=== PATIENT | female | born 1955 | race Caucasian/White ===

== ENCOUNTER 2022-09-14 22:56 | Inpatient (IN) | payer MEDICARE, OTHER ==
[~2022-09-14] VITALS: Ht 165.1 cm; Wt 81.9 kg
[2022-09-14 23:20] LABS: Base Excess Venous -8.6 mmol/L; Bicarbonate Venous 16.6 mmol/L (24.0-30.0); PCO2 Venous 53.5 mmHg (38-42); pH Blood Venous 7.18 (7.34-7.37)
[2022-09-14 23:22] LABS: Hematocrit 39.7 % (33.0-51.0); Hemoglobin 12.9 g/dL (11.5-16.0); Mean Corpuscular HGB 31.8 pg (26.0-34.0); Mean Corpuscular HGB Conc 32.5 g/dL (31.5-36.5); Mean Corpuscular Volume 98 fL (80-100); Mean Platelet Volume 9.7 fL (9.1-12.4); Platelet Count 392 K/mm3 (150-400); RDW Coefficient Variation 13.8 % (11.7-14.2); RDW Standard Deviation 50.1 fL (35.1-46.3); Red Blood Cell Count 4.06 M/mm3 (3.80-5.20); White Blood Cell Count 12.25 K/mm3 (4.00-11.30)
[2022-09-15 00:24] LABS: BASOPHILS PERCENT MAN 0 % (0-2); EOSINOPHILS ABSOLUTE MAN 0.36 K/mm3 (0.00-0.68); EOSINOPHILS PERCENT MAN 3 % (0-6); LYMPHOCYTES ABSOLUTE MAN 4.41 K/mm3 (0.84-5.20); LYMPHOCYTES PERCENT MAN 36 % (21-46); MONOCYTES ABSOLUTE MAN 0.98 K/mm3 (0.16-1.47); MONOCYTES PERCENT MAN 8 % (4-13); NEUTROPHILS ABSOLUTE MAN 6.49 K/mm3 (1.96-9.15); SEG NEUTROPHILS PERCENT MAN 53 % (41-73); TOTAL CELLS COUNTED 100
[2022-09-15 00:30] LABS: Albumin, Blood 3.4 g/dL (3.4-5.0); Albumin/Globulin Ratio 0.8 (0.8-1.8); Bilirubin, Total 0.3 mg/dL (0.1-1.0); Calcium, Blood 8.8 mg/dL (8.5-10.1); Creatinine, Blood 0.89 mg/dL (0.40-1.00); Globulin, Blood 4.5 g/dL (2.2-4.0); Potassium, Blood 3.6 mmol/L (3.5-5.5); Total Protein, Blood 7.9 g/dL (6.4-8.2)
[2022-09-15 00:35] LABS: Thyroid Stimulating Hormone 8.33 uIU/mL (0.360-4.800)
[2022-09-15 00:46] LABS: Influenza A, PCR NEGATIVE (NEGATIVE); Influenza B, PCR NEGATIVE (NEGATIVE); Resp Syncytial Virus, PCR NEGATIVE (NEGATIVE); SARS-Cov-2 (COVID-19) PCR, MMC NEGATIVE (NEGATIVE)
[2022-09-15 01:36] LABS: PCO2 Arterial 42.6 mmHg (35-45); PO2 Arterial 83.2 mmHg (80-100); pH Blood Arterial 7.37 (7.35-7.45)
--- NOTE | 2022-09-15 02:55 | NUR ---
PT ADMIT TO ICU 6: ELIGIBILITY CONSULTANT PT ADMITTED FROM THE ER TO ICU 6. PT ARRIVED TO THE UNIT @ 0154. PT ARRIVED WITH A R. RADIAL ACCESS SITE WITH A TR-BAND IN PLACE WITH 12 ML AIR INFLATED. ACCESS SITE ASSESSED AND NO ACTIVE BLEEDING OR HEMATOMA NOTED; SENSATION NORMAL IN AFFECTED HAND, PULSE STRONG AND CAP REFIL WNL. PT HAS ONE STENT PLACED IN PROXIMAL LAD. PT HAD NO PRIOR DX OF CARDIO SYSTEM. PT ARRIVED ON THE BIPAP WITH SETTINGS OF 14/8, FIO2 50%; PT HAD SIGNIFICANT C/O SOB WHICH BROUGHT HER TO THE ER AND A CRITICAL PH OF 7.18 THAT INITATED BIPAP TX. REPEAT PH BACK TO NORMAL AT 7.37. PT INITALLY HAD LACTIC AT 8.0, BUT REPEAT LACTIC NOW AT 1.4. PT STATES THAT WOB HAS IMPROVED BUT SHE STILL FEELS SOB. PT LUNG SOUNDS ARE CLEAR WITH DIM BASES BILATERALLY. PT SPO2 98< AND RR 18-20. PT IS SINUS TACH ON MONITOR WITH HR IN THE 100'S AND SBP 90-100'S; PT DENIES CHEST PAIN AT THIS TIME. PT HAS HYPOACTIVE BS; ABD OBESE, SOFT AND NON-TENDER. PT REMAINS CONTINENT AND PLACED ON BEDPAN FOR VOIDING WITH MINIAL ASSIST; PT ABLE TO LIFT HIPS AND HAS INDEPENDENT BED MOBILITY. 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 PT HAS WARM, INTACT SKIN BUT FINGERS AND TOES ARE COOL; CAP REFIL < 3 SECONDS. PT RECIEVED LASIX IN ER AND HAS BEEN VOIDING FREQUENTLY; PUREWICK AND DEPENDS PLACED AT THIS TIME. PT HAS PIV IN RAC AND LAC. PT'S AT BEDSIDE AND UPDATED ON PROCEDURE AND PT'S STATUS, AND ALL QUESTIONS ANSWERED AT THIS TIME. BED LOWERED, CALL LIGHT IN REACH, WILL CONTINUE TO MONITOR.
[2022-09-15 03:10] LABS: CHOL/HDL RATIO 2.8; Cholesterol 163 mg/dL (50-200); HDL Cholesterol 59 mg/dL (>39); LDL/HDL RATIO 1.6; Low Density Lipoprotein Chol 95 mg/dL (0-110); Triglycerides 44 mg/dL (30-160); Very Low Density Lipoprot Chol 8 mg/dL (6-32)
--- NOTE | 2022-09-15 06:22 | NUR ---
SHIFT SUMMARY: NO ACUTE CHANGES OVER NIGHT. PT TR BAND DEFLATED BY 0600. SITE LOOKS GOOD AND THERE IS NO BLEEDING OR HEMATOMA PRESENT. PT SWITCHED OVER TO NC @ 6LPM AROUND 0330 AND TOLERATED THIS UNTIL 0530; PT HAD TO BE SWITCHED BACK OVER TO BIPAP WITH SETTINGS 14/6, FIO2 50% TO MAINTAIN SPO2. PT STATES SHE IS BREATHING BETTER WITH THE BIPAP. PT AT BEDSIDE UNTIL 0500 AND THEN LEFT THE UNIT. PUREWICK IN PLACE AND 75 ML OUT IN COLLECTION CANISTER. PT MAINTAINS INDEPENDENT BED MOBILTY. BED LOWERED, CALL LIGHT IN PLACE, WILL CONTINUE TO MONITOR UNTIL ONCOMING RN ARRIVES.
[2022-09-15 07:21] LABS: BASOPHILS ABSOLUTE AUTO 0.05 K/mm3 (0.00-0.23); BASOPHILS PERCENT AUTO 0 % (0-2); EOSINOPHILS ABSOLUTE AUTO 0.02 K/mm3 (0.00-0.68); EOSINOPHILS PERCENT AUTO 0 % (0-6); Hematocrit 35.2 % (33.0-51.0); Hemoglobin 11.8 g/dL (11.5-16.0); IMMATURE GRAN ABSOLUTE AUTO 0.05 K/mm3 (0.00-0.10); IMMATURE GRAN PERCENT AUTO 0 % (0-1); LYMPHOCYTES ABSOLUTE AUTO 1.52 K/mm3 (0.84-5.20); LYMPHOCYTES PERCENT AUTO 11 % (21-46); MONOCYTES ABSOLUTE AUTO 0.87 K/mm3 (0.16-1.47); MONOCYTES PERCENT AUTO 6 % (4-13); Mean Corpuscular HGB 31.5 pg (26.0-34.0); Mean Corpuscular HGB Conc 33.5 g/dL (31.5-36.5); Mean Corpuscular Volume 94 fL (80-100); Mean Platelet Volume 9.3 fL (9.1-12.4); NEUTROPHILS ABSOLUTE AUTO 11.98 K/mm3 (1.96-9.15); NEUTROPHILS PERCENT AUTO 83 % (41-73); Platelet Count 323 K/mm3 (150-400); RDW Coefficient Variation 13.8 % (11.7-14.2); RDW Standard Deviation 47.1 fL (35.1-46.3); Red Blood Cell Count 3.75 M/mm3 (3.80-5.20); White Blood Cell Count 14.49 K/mm3 (4.00-11.30)
[2022-09-15 08:08] LABS: Bun/Creatinine Ratio 17.2 (12.0-20.0); Calcium, Blood 8.4 mg/dL (8.5-10.1); Creatinine, Blood 0.93 mg/dL (0.40-1.00); Potassium, Blood 4.2 mmol/L (3.5-5.5)
[2022-09-15 08:26] LABS: Creatine Kinase MB 93.9 ng/mL (0.0-3.6); Creatine Kinase MB Index 9.5 (0.0-4.0)
--- NOTE | 2022-09-15 09:30 | NUR ---
AM ASSESSMENT: PT A&0X4. PT DENIES CHEST PAIN, BUT REPORTS SOB WITH EXERTION. PT GIVEN A BREAK FROM BIPAP FROM [id number]. PT WAS ON 4 LITERS NASAL CANULA AND SATS>90%. NO NOTED COUGH. LUNGS DIMINISHED IN THE BASES.PT SUMMONED RN @ 0850 AND REPORTED SOB. BIPAP PLACED 14/8-FIO2 40% PT WAS ABLE TO TOLERATE PO MEDS AND ATE 50% OF BREAKFAST THIS AM. RIGHT RADIAL TR BAND REMOVED @ 0730 AND CLEAR [address]CCLUSIVE DRESSING PL[address]. RIGHT RADIAL SITE IS CLEAR, SOFT, AND NONTENDER. NO HEMATOMA. ECG SHOWS SR WITH RATE 90'S. 12 LEAD ECG COMPLETED. TROPONIN 33, 861-REPORTED TO DR. THOMPSON @ 0850. SBP TRENDING 90-100'S. METOPROLOL AND ZESTRIL HELD. DR. THOMPSON UPDATED-VERBAL ORDER GIVEN TO GIVE PT ZESTRIL 2.5 MG PO AND START LASIX 40 MG IVP NOW AND THEN BIDD.PT EDUCATED BY THIS RN ON THE IMPORTANCE OF ADHERING TO MEDICATION REGIME. DISCUSSED BRILINTA AND ASA PURPOSE AND IMPORTANCE.-WHILE PT VERBALIZED UNDERSTANDING, SHE STATES "I DON'T TAKE ANY MEDICATIONS AT HOME AND I DON'T REALLY WANT TO." NO GI DISTRESS. PURE WIC IN PLACE. U/A TO BE SENT WHEN PT ABLE TO GET OOB TO VOID. SKIN IS PALE, BUT OVERALL C/D/I. PT HAS CALL LIGHT IN REACH AND CALLS FOR ASSISTANCE PRN.
--- NOTE | 2022-09-15 09:45 | NUR ---
ECHO IN PROGRESS. HOSPITALIST CONSULT HAS BEEN PLACED FOR MEDICAL MANAGEMENT.
--- NOTE | 2022-09-15 10:55 | NUR ---
ECHO & CH1V COMPLETE. PT PLACED ON 4 LITERS NASAL CANULA AND GIVEN ZESTRIL PO WITHOUT DIFFICULTY-SEE EMAR. DR. THOMPSON IN FOR VISIT-UPDATE GIVEN.
--- NOTE | 2022-09-15 12:00 | NUR ---
PT REMAINS A&OX4. PT DENIES CP OR SOB AT THIS TIME. ECG CONTINUES SR WITH RATE 90'S. METOPROLOL HAS BEEN GIVEN PER NEW PARAMETERS-SEE EMAR. SBP 110-120'S LUNGS REMAIN DIMINISHED IN THE BASES. SATS>90% ON 4 LITERS NASAL CANULA. URINE OUTPUT 1950 SO FAR THIS SHIFT. PT SITTING UP IN BED VISITING WITH FAMILY WITHOUT NOTED DISTRESS-CALL LIGHT IN REACH.
--- NOTE | 2022-09-15 16:00 | NUR ---
PT REQUESTED THAT BIPAP BE PLACED @ APROXIMATELY 1330 DUE TO SOB AND INCREASED WOB. PT RESTED QUIETLY ON BIPAP AND MAINTAINED SATS>90% FIO2 30% PT PLACED ON 4 LITERS NASAL CANULA FOR 1600 ASSESSMENT. NO NOTED SOB. LUNGS REMAIN DIMINISHED IN THE BASES. MAINTAINING SATS>90% ON 4 LITERS NASAL CANULA. ECG CONTINUES SR WITH RATE 90'S. SBP TRENDING 110'S. RIGHT RADIAL SITE REMAINS CLEAR. NO BLEEDING OR HEMATOMA-ARM BOARD IN PLACE. NO GI DISTRESS. PT GIVEN SPONGE BATH, SHAMPOO, AND LINEN CHANGE COMPLETED. PT ASSISTED OOB TO CHAIR WITH MINIMAL ASSISTANCE. EXTERNAL CATHETER REMOVED DURING BATH AND ADULT BRIEF PLACED. PT REQUESTS TO HAVE EXTERNAL CATHETER REPLACED ONCE SHE GETS BACK TO BED AND PRIOR TO NEXT DOSE OF DIURETIC. CALL LIGHT IN REACH.
--- NOTE | 2022-09-15 18:00 | NUR ---
PT SAT UP IN CHAIR FOR DINNER. TOLERATED WELL. MAINTAINED SATS>90% ON 4 LITERS NASAL CANULA. PT HAS NOT HAD ANY CHEST PAIN TODAY. HR CONTINUES IN THE 90'S SR NO NOTED ECTOPY. SBP 90-110'S. RIGHT RADIAL SITE REMAINS CLEAR-NO BLEEDING OR HEMATOMA. DR. THOMPSON BY TO SEE PT DURING HER DINNER. FULL UPDATE GIVEN AND PT STARTED ON JARDIANCE-SEE EMAR. PT TOLERATING DIET WELL. CBG BEFORE DINNER 142 0 COVERAGE REQUIRED. URINE OUTPUT VERY GOOD THIS SHIFT. PT ASSISTED BACK TO BED AFTER DINNER-DARRELL CARE DONE AND NEW EXTERNAL CATHETER PLACED. CALL LIGHT IN REACH. PT WILL CALL FOR ASSIST PRN.
[2022-09-15 18:05] LABS: Source, Urine Clean Catch
[2022-09-15 18:17] LABS: Appearance, Urine Clear (Clear); Bilirubin, Urine Neg (Neg); Blood, Urine Neg (Neg); Color, Urine Yellow (P-Yellow); Glucose Qualitative, Urine Neg (Neg); Ketones, Urine Neg (Neg); Leukocyte Esterase, Urine Neg (Neg); Nitrite, Urine Neg (Neg); Protein, Urine Neg (Neg); Specific Gravity, Urine 1.015 (1.003-1.022); Urobilinogen, Urine NORM (Normal)
--- NOTE | 2022-09-15 19:09 | NUR ---
ASSUMED CARE. AOX3, FAMILY AT BESIDE. DENIES ANY PAIN. RIGHT RADIAL ARMBAND IN PLACE, SITE HAS SMALL AMOUNT OF LEAKAGE, NO HEMATOMA NOTED. PATIENT IS AWARE OF PERCAUTIONS. VS STABLE AT THIS TIME. DENIES ANY NEEDS. CALL LIGHT IS IN REACH.
[2022-09-15 20:04] LABS: Creatine Kinase MB Index 6.2 (0.0-4.0)
--- NOTE | 2022-09-15 20:25 | NUR ---
PT EXPRESSED A LOT OF CONCERN ABOUT TAKING CARE OF HER MOTHER WHO HAS DEMENTIA AND HAS A LOT OF NEEDS. SHE EXPRESSED THAT THEY CAN NOT AFFORD PLACEMENT BUT TAKING CARE OF HER HAS PUT STRESS ON HER. DISCUSSED SOCIAL SERVICE CONSULT FOR POSSIBLE ASSISTANCE WITH PLACEMENT OF HER MOTHER. WILL PUT AN ORDER IN.
--- NOTE | 2022-09-16 05:38 | NUR ---
SHIFT SUMMARY: PT REMAINS STABLE. NO CHEST PAIN T/O NIGHT. HR HAS REMAINED BETWEEN 70-90 SINUS. BP HAS REMAINED BETWEEN 90-110 SYSTOLIC, MAP >65. O2 DEMAND HAS DECREASED TO 2 L WITH SATS 95-99%, WILL CONTINUE TO WEAN. SHE HAS HAD TOTAL OF 2100 URINE OUTPUT AND 480 INTAKE. DYSPNEA HAS IMPROVED. TR BAND REMAINS OFF, ARM BAND REMAINS UNCHANGED/STABLE. [place] [id number]. ABLE TO GET UP AND TRANSFER WITH SBA. NO OTHER ACUTE CHANGES THIS SHIFT.
[2022-09-16 07:36] LABS: Magnesium, Blood 2.4 mg/dL (1.6-2.4)
[2022-09-16 07:44] LABS: Albumin, Blood 3.1 g/dL (3.4-5.0); Albumin/Globulin Ratio 0.8 (0.8-1.8); Bilirubin, Total 0.7 mg/dL (0.1-1.0); Bun/Creatinine Ratio 23.5 (12.0-20.0); Calcium, Blood 8.7 mg/dL (8.5-10.1); Creatinine, Blood 1.02 mg/dL (0.40-1.00); Free Thyroxine 0.94 ng/dL (0.70-1.60); Globulin, Blood 4.1 g/dL (2.2-4.0); Potassium, Blood 3.6 mmol/L (3.5-5.5); Total Protein, Blood 7.2 g/dL (6.4-8.2)
[2022-09-16 08:09] LABS: Creatine Kinase MB 25.7 ng/mL (0.0-3.6); Creatine Kinase MB Index 3.8 (0.0-4.0)
--- NOTE | 2022-09-16 09:30 | NUR ---
Assumed care of pt at 0700. She is on 3 lpm o2 via NC and resting comfortably in bed. Pt has a Purewick in place, though she can ambulate. Did not require Bipap last night. Pt A&Ox4, GCS 15, no acute complaints at this time.
--- NOTE | 2022-09-16 12:25 | NUR ---
Dr. Rojo advised pt could be downgraded to PCU w/ tele. RN retrieved order form for [employer] which pt will need prior to DC. Form needs to be filled out, is on pt chart.
--- NOTE | 2022-09-16 14:18 | NUR ---
Completed [employer] form (completed by Dr. Rojo) was faxed to [phone].
--- NOTE | 2022-09-16 15:49 | NUR ---
Called report to [facility] for PCU # [id number]. Pt will eb transported via w/ her personal effects.
--- NOTE | 2022-09-16 15:56 | NUR ---
PT ADMITTED TO PCU 15 FROM ICU. PT ABLE TO TRANSFER FROM CHAIR TO BED UNASSISTED. PT DENIES C/O PAIN, DENIES SOB. VSS. R RADIAL ACCESS SITE WNL.
--- NOTE | 2022-09-16 18:13 | NUR ---
PT REPORTED FEELING SOB, RESP UNLABORED. SATS 96% ON RA, LUNGS CLEAR. AFTER SPEAKING WITH PT, PT REPORTS FEELING VERY ANXIOUS ABOUT PROCEDURE TOMORROW, ANXIETY OVERALL ABOUT CONDITION. PT COMFORTED AND EDUCATED. HEART MODEL BROUGHT TO BEDSIDE TO EXPLAIN STENTS. QUESTIONS ANSWERED. LASIX IV GIVEN. PT APPEARS MORE CALM NOW.
[2022-09-17 04:11] LABS: BASOPHILS ABSOLUTE AUTO 0.06 K/mm3 (0.00-0.23); BASOPHILS PERCENT AUTO 1 % (0-2); EOSINOPHILS ABSOLUTE AUTO 0.22 K/mm3 (0.00-0.68); EOSINOPHILS PERCENT AUTO 2 % (0-6); Hematocrit 35.8 % (33.0-51.0); Hemoglobin 12.3 g/dL (11.5-16.0); IMMATURE GRAN ABSOLUTE AUTO 0.04 K/mm3 (0.00-0.10); IMMATURE GRAN PERCENT AUTO 0 % (0-1); LYMPHOCYTES ABSOLUTE AUTO 1.66 K/mm3 (0.84-5.20); LYMPHOCYTES PERCENT AUTO 17 % (21-46); MONOCYTES ABSOLUTE AUTO 0.96 K/mm3 (0.16-1.47); MONOCYTES PERCENT AUTO 10 % (4-13); Mean Corpuscular HGB 31.8 pg (26.0-34.0); Mean Corpuscular HGB Conc 34.4 g/dL (31.5-36.5); Mean Corpuscular Volume 93 fL (80-100); Mean Platelet Volume 9.6 fL (9.1-12.4); NEUTROPHILS ABSOLUTE AUTO 7.07 K/mm3 (1.96-9.15); NEUTROPHILS PERCENT AUTO 71 % (41-73); Platelet Count 305 K/mm3 (150-400); RDW Coefficient Variation 13.6 % (11.7-14.2); RDW Standard Deviation 46.2 fL (35.1-46.3); Red Blood Cell Count 3.87 M/mm3 (3.80-5.20); White Blood Cell Count 10.01 K/mm3 (4.00-11.30)
--- NOTE | 2022-09-17 04:28 | NUR ---
SHIFT SUMMARY NO ACUTE CHANGES THIS SHIFT. VSS. AXO WITH SOME MANAGEABLE ANXIETY REGARDING 2ND ANGIOGRAM. ON RA. DENYNG CP/PRESSURE. REMAINS IN SR WITH MURMUR TO AUSCULTATION. PT BEING DIURESED, PT REQUESTING PUREWICK / THIS HAS NOT BEEN SUCCESFUL AND HAS RESULED IN SOILIING BED. SO PT GOING TO RESTROOM. NPO SINCE MIDNIGHT FOR ANGIOGRAM.
[2022-09-17 04:39] LABS: Bun/Creatinine Ratio 27.1 (12.0-20.0); Calcium, Blood 8.9 mg/dL (8.5-10.1); Potassium, Blood 3.6 mmol/L (3.5-5.5)
--- NOTE | 2022-09-17 18:38 | NUR ---
DAY SHIFT SUMMARY PT ORIENTED X4, NPO THIS AM FOR PROCEDURE. PT WENT TO REPAIR WELDER AND RETURNED AROUND 1200. TR BAND IN PLACE TO R WRIST. PT EDUCATED ON IMPORTANCE OF IMMOBILIZING THAT WRIST AND ACTIVITY RESTRICTIONS. VERBALIZED UNDERSTANDING. SITE CDI, TR BAND DEFLATED SLOWLY AFTER 1500 PER MD ORDERS. VSS, DENIES CP OR DISCOMFORT. SR ON TELEMETRY. [employer]IFEV[employer] PLACED ON PATIENT BY [employer] REP TODAY AND EDUCATION GIVEN FOR APPROXIMATELY ONE HOUR BY REP. FAMILY AT BEDSIDE FOR THIS. WILL PASS ON TO [facility]
--- NOTE | 2022-09-18 04:45 | NUR ---
SHIFT SUMMARY: PT ALERT AND ORIENTED X4, ABLE TO FOLLOW COMMANDS AND MAKE NEEDS KNOWN. BP STABLE, HR SR 70'S, AFEBRILE, ON RA SATURATIONS >98%. RESPIRATIONS EVEN AND UNLABORED. PULSES STRONG AND EQUAL THROUGHOUT. NO COMPLAINTS OF CP/PRESSURE THROUGHOUT THE NIGHT. PT WITH R. RADIAL SITE, C/D/I, NO HEMATOMA, OOZING, OR BRUISING NOTED, ARMBOARD IN PLACE. PT FITTED WITH [employer] 09/17/22, CURRENTLY ON. IND TO AND FROM BATHROOM. ABLE TO REPOS IND IN BED. POSSIBLE D/C IN AM. BED IN LOW, CALL LIGHT IN REACH, WILL REPORT TO ONCOMING RN.
[2022-09-18 04:48] LABS: Bun/Creatinine Ratio 34.4 (12.0-20.0); Calcium, Blood 8.8 mg/dL (8.5-10.1); Creatinine, Blood 0.93 mg/dL (0.40-1.00); Potassium, Blood 3.9 mmol/L (3.5-5.5)
[2022-09-18] MEDS ORDERED: ASPI81CH PO (14:08)
[2022-09-18] MEDS ORDERED: FURO40 PO (14:09)
[2022-09-18] MEDS ORDERED: ATOR80 PO (14:09)
[2022-09-18] MEDS ORDERED: JARDIANCE25 MG PO (14:09)
[2022-09-18] MEDS ORDERED: METO50ER PO (14:10)
[2022-09-18] MEDS ORDERED: LISI5 PO (14:10)
[2022-09-18] MEDS ORDERED: SPIR25 PO (14:11)
[2022-09-18] MEDS ORDERED: TICA90TA PO (14:12)
--- NOTE | 2022-09-18 14:58 | NUR ---
PT DISCHARGED @ 1450 VIA WHEELCHAIR AND STAFF ASSISTANCE TO PRIVATE VEHICLE. AT BEDSIDE FOR DISCHARGE INSTRUCTIONS AND ALL QUESTIONS ANSWERED. MEDICATIONS FAXED TO [facility] IN [place] PER PT REQUEST. HOME MEDICATION RETURNED AND PT LEFT WITH ALL BELONGINGS.
== END 2022-09-18 14:51 | disposition home or self-care (01) | DRG 246 ==
LOC: ER 22:56 → ICUE 23:52 → ICUW 23:52 → PCU 23:52 → ICUE 09-15 00:15 → PCU 09-16 15:56
PROVIDERS: Emergency Medicine; Internal Medicine; Nurse Practitioner Acute Care; ADMIT Internal Medicine Cardiovascular Disease
PROC: 027034Z Dilation of Coronary Artery, One Artery with Drug-eluting Intraluminal Device, Percutaneous Approach (ICD-10-PCS; principal; 2022-09-15)
PROC: 4A023N7 Measurement of Cardiac Sampling and Pressure, Left Heart, Percutaneous Approach (ICD-10-PCS; 2022-09-15)
PROC: B211YZZ Fluoroscopy of Multiple Coronary Arteries using Other Contrast (ICD-10-PCS; 2022-09-15)
PROC: B24BZZ3 Ultrasonography of Heart with Aorta, Intravascular (ICD-10-PCS; 2022-09-15)
PROC: 027034Z Dilation of Coronary Artery, One Artery with Drug-eluting Intraluminal Device, Percutaneous Approach (ICD-10-PCS; 2022-09-17)
PROC: B24BZZ3 Ultrasonography of Heart with Aorta, Intravascular (ICD-10-PCS; 2022-09-17)
PROC: B211YZZ Fluoroscopy of Multiple Coronary Arteries using Other Contrast (ICD-10-PCS; 2022-09-17)
DX: I21.09 ST elevation (STEMI) myocardial infarction involving other coronary artery of anterior wall (principal); I50.41 Acute combined systolic (congestive) and diastolic (congestive) heart failure; J96.01 Acute respiratory failure with hypoxia; I25.10 Atherosclerotic heart disease of native coronary artery without angina pectoris; Z20.822 Contact with and (suspected) exposure to COVID-19; E11.9 Type 2 diabetes mellitus without complications; F17.210 Nicotine dependence, cigarettes, uncomplicated; E11.65 Type 2 diabetes mellitus with hyperglycemia; E78.5 Hyperlipidemia, unspecified; E03.9 Hypothyroidism, unspecified; Z79.82 Long term (current) use of aspirin; Z79.899 Other long term (current) drug therapy
CPT/HCPCS: 0241U; 36415; 71045; 76937; 80048; 80053; 80061; 81003; 82550; 82553; 82803; 82947; 83036; 83605; 83735; 83880; 84439; 84443; 84484; 85025; 85347; 87040; 92920; 93005; 93010; 93458; 94640; 94660; 94664; 94762; 96374; 96375; 99152; 99153; 99291-25; A9270; C1725; C1769; C1874; C1887; C1894; C8929; C9600; C9606; J0461; J1644; J1650; J1940; J2250; J2370; J2405; J3010; J3246; J7030; J7050; Q9957; Q9967

== ENCOUNTER 2023-06-05 17:01 | Inpatient (IN) | payer MEDICARE, OTHER ==
[~2023-06-05] VITALS: Ht 172.7 cm; Wt 58.9 kg
[~2023-06-05 17:01] MED LIST: ASPI81CH PO; ATOR80 PO; FURO40 PO; JARDIANCE25 MG PO; LISI5 PO; METO25 PO; SPIR25 PO; TICA90TA PO
[2023-06-05 17:46] LABS: BASOPHILS ABSOLUTE AUTO 0.07 K/mm3 (0.00-0.23); BASOPHILS PERCENT AUTO 1 % (0-2); EOSINOPHILS ABSOLUTE AUTO 0.12 K/mm3 (0.00-0.68); EOSINOPHILS PERCENT AUTO 1 % (0-6); Hematocrit 33.4 % (33.0-51.0); IMMATURE GRAN ABSOLUTE AUTO 0.05 K/mm3 (0.00-0.10); IMMATURE GRAN PERCENT AUTO 0 % (0-1); LYMPHOCYTES ABSOLUTE AUTO 1.86 K/mm3 (0.84-5.20); LYMPHOCYTES PERCENT AUTO 13 % (21-46); MONOCYTES ABSOLUTE AUTO 1.03 K/mm3 (0.16-1.47); MONOCYTES PERCENT AUTO 7 % (4-13); Mean Corpuscular HGB 32.3 pg (26.0-34.0); Mean Corpuscular HGB Conc 32.9 g/dL (31.5-36.5); Mean Corpuscular Volume 98 fL (80-100); Mean Platelet Volume 9.9 fL (9.1-12.4); NEUTROPHILS ABSOLUTE AUTO 10.99 K/mm3 (1.96-9.15); NEUTROPHILS PERCENT AUTO 78 % (41-73); Platelet Count 270 K/mm3 (150-400); RDW Coefficient Variation 13.3 % (11.7-14.2); RDW Standard Deviation 47.9 fL (35.1-46.3); Red Blood Cell Count 3.41 M/mm3 (3.80-5.20); White Blood Cell Count 14.12 K/mm3 (4.00-11.30)
[2023-06-05 18:01] LABS: Albumin, Blood 3.4 g/dL (3.4-5.0); Albumin/Globulin Ratio 0.7 (0.8-1.8); Bilirubin, Total 0.5 mg/dL (0.1-1.0); Bun/Creatinine Ratio 20.9 (12.0-20.0); Calcium, Blood 9.1 mg/dL (8.5-10.1); Creatinine, Blood 1.29 mg/dL (0.40-1.00); Globulin, Blood 4.6 g/dL (2.2-4.0); Potassium, Blood 4.2 mmol/L (3.5-5.5)
[2023-06-05 19:18] LABS: International Normalized Ratio 1.04; Prothrombin Time Results 10.9 Sec (9.7-11.5)
[2023-06-05 22:55] VITALS: BP 116/61
[2023-06-05 23:40] VITALS: BP 125/112
[2023-06-06] VITALS (14 sets, daily range): BP systolic 97–167; BP diastolic 47–78
[2023-06-06 03:34] LABS: BASOPHILS PERCENT AUTO 1 % (0-2); EOSINOPHILS ABSOLUTE AUTO 0.06 K/mm3 (0.00-0.68); EOSINOPHILS PERCENT AUTO 0 % (0-6); Hematocrit 34.6 % (33.0-51.0); Hemoglobin 11.2 g/dL (11.5-16.0); IMMATURE GRAN ABSOLUTE AUTO 0.06 K/mm3 (0.00-0.10); IMMATURE GRAN PERCENT AUTO 0 % (0-1); LYMPHOCYTES ABSOLUTE AUTO 1.07 K/mm3 (0.84-5.20); LYMPHOCYTES PERCENT AUTO 6 % (21-46); MONOCYTES ABSOLUTE AUTO 1.23 K/mm3 (0.16-1.47); MONOCYTES PERCENT AUTO 7 % (4-13); Mean Corpuscular HGB 31.7 pg (26.0-34.0); Mean Corpuscular HGB Conc 32.4 g/dL (31.5-36.5); Mean Corpuscular Volume 98 fL (80-100); Mean Platelet Volume 10.1 fL (9.1-12.4); NEUTROPHILS ABSOLUTE AUTO 15.45 K/mm3 (1.96-9.15); NEUTROPHILS PERCENT AUTO 86 % (41-73); Platelet Count 262 K/mm3 (150-400); RDW Coefficient Variation 13.2 % (11.7-14.2); RDW Standard Deviation 47.9 fL (35.1-46.3); Red Blood Cell Count 3.53 M/mm3 (3.80-5.20); White Blood Cell Count 17.97 K/mm3 (4.00-11.30)
[2023-06-06 04:19] LABS: Albumin, Blood 3.3 g/dL (3.4-5.0); Albumin/Globulin Ratio 0.7 (0.8-1.8); Bilirubin, Total 0.7 mg/dL (0.1-1.0); Calcium, Blood 8.8 mg/dL (8.5-10.1); Creatinine, Blood 1.18 mg/dL (0.40-1.00); Globulin, Blood 4.5 g/dL (2.2-4.0); Magnesium, Blood 2.3 mg/dL (1.6-2.4); Phosphorus, Blood 3.9 mg/dL (2.5-4.9); Potassium, Blood 3.7 mmol/L (3.5-5.5); Total Protein, Blood 7.8 g/dL (6.4-8.2)
--- NOTE | 2023-06-06 06:29 | NUR ---
Admit/ End of shift note. Pt admitted from ED into PCU7. Pt was on 6L nc and was struggling to maintain sats >90%. Pt was increased to 7L. As RN was completing admission interview Pt became increasingly SOB, RT and MD were phoned. Pt was placed on CPAP and given IV lasix both with good effect. Pt remained on the CPAP for 8 hours and was able to wean back to room air. Pt had some complaints of CP which has resolved with respiratory status. Pt is able to make needs known, call light is within reach.
--- NOTE | 2023-06-06 10:51 | NUR ---
PT STATED TRYING TO "REST BETWEEN VISITS FROM STAFF MEMBERS." SHE DENIES ANY PAIN OR DISCOMFORT AND IS PARTICIPATING IN CARE APPROPRIATELY. CALL LIGHT IN REACH
--- NOTE | 2023-06-06 13:21 | NUR ---
PT TRANSFERED TO FOR ANGIO
--- NOTE | 2023-06-06 14:28 | NUR ---
PT BACK TO ROOM FROM HC. PT RESTING COMFORTABLY WITH EVEN NON LABORED RESP. NO REDNESS, SWELLING, OR BLEEDING AT ANGIO SITE. VSS
--- NOTE | 2023-06-06 16:06 | NUR ---
PT BP WAS INCREASING. PT LUNGS WERE CLEAR AND PT HAD NO COMPLAINTS OF SOB. MD NOTIFIED DUE TO HER RECENT FLUID OVERLOAD, ORDERS WERE GIVEN TO DECREASE FLUID RATE. PT HAS NO COMPLAINTS AT THIS TIME
--- NOTE | 2023-06-06 18:09 | NUR ---
SHIFT SUMMARY: PT WENT TO HC TODAY FOR ANGIO. R RADIAL SITE THAT IS NON TENDER, NO REDDNESS, OR SWELLING. PT DENIES ANY PAIN AT SITE. ALL AIR REMOVED WITHOUT ANY CHANGES IN ASSESSMENT. PT IS A/OX4 AND MAKES HER REQUEST KNOWN. 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 SHE LIVES AT HOME WITH AND REQUESTS TO DC TOMORROW TO MAKE IT TO HER MOM'S . PT EDUCATED ON NEED TO NOT USE THE RIGHT HAND/ARM AND STATES UNDERSTANDING.
[2023-06-07 03:47] VITALS: BP 136/66
--- NOTE | 2023-06-07 05:07 | NUR ---
SHIFT SUMMARY PT A&Ox4, CALLS AND COMMUNICATES NEEDS APPROPRIATELY. BP STABLE, SINUS 70's, DENIES CP/PRESSURE. SpO2> 92% ON RA WHILE AWAKE, CPAP WHILE ASLEEP, DENIES SOB. SBA TO BSC, CONTINENT OF URINE AND BOWEL. PT REQUESTED PUREWICK TO USE WHILE SLEEPING. PT HAD NO C/O PAIN THROUGHOUT SHIFT. R RADIAL SITE WNL, C/D/I, ARM BOARD IN PLACE. NO OTHER EVENTS, WILL REPORT TO ONCOMING RN.
[2023-06-07 07:18] VITALS: BP 108/70
[2023-06-07 07:33] VITALS: BP 129/70
[2023-06-07 08:23] LABS: BASOPHILS ABSOLUTE AUTO 0.05 K/mm3 (0.00-0.23); BASOPHILS PERCENT AUTO 1 % (0-2); EOSINOPHILS ABSOLUTE AUTO 0.25 K/mm3 (0.00-0.68); EOSINOPHILS PERCENT AUTO 3 % (0-6); Hematocrit 33.2 % (33.0-51.0); IMMATURE GRAN ABSOLUTE AUTO 0.03 K/mm3 (0.00-0.10); IMMATURE GRAN PERCENT AUTO 0 % (0-1); LYMPHOCYTES PERCENT AUTO 12 % (21-46); MONOCYTES ABSOLUTE AUTO 0.89 K/mm3 (0.16-1.47); MONOCYTES PERCENT AUTO 9 % (4-13); Mean Corpuscular HGB 31.6 pg (26.0-34.0); Mean Corpuscular HGB Conc 33.1 g/dL (31.5-36.5); Mean Corpuscular Volume 95 fL (80-100); NEUTROPHILS ABSOLUTE AUTO 7.18 K/mm3 (1.96-9.15); NEUTROPHILS PERCENT AUTO 76 % (41-73); Platelet Count 261 K/mm3 (150-400); RDW Coefficient Variation 13.2 % (11.7-14.2); RDW Standard Deviation 46.5 fL (35.1-46.3); Red Blood Cell Count 3.48 M/mm3 (3.80-5.20)
[2023-06-07 08:39] LABS: Calcium, Blood 8.7 mg/dL (8.5-10.1); Creatinine, Blood 1.3 mg/dL (0.40-1.00); Potassium, Blood 3.2 mmol/L (3.5-5.5)
[2023-06-07 12:02] VITALS: BP 132/88
[2023-06-07] MEDS ORDERED: TORSE20 PO (12:38)
[2023-06-07 13:14] VITALS: BP 153/90
--- NOTE | 2023-06-07 13:35 | NUR ---
DISCHARGE NOTE: PT EDUCATED ON DISCHARGE INSTRUCTIONS AND NEW MEDICATIONS. PT STATED UNDERSTANIND AND HAD NO FURTHER QUESTIONS OR CONCERNS. PT DENIED ESCORT OUT AND WALKED OUT. HER GAIT IS STEADY AND PT DENIES ANY PAIN OR DISCOMFORT. PT TO DRIVE PT HOME
== END 2023-06-07 13:40 | disposition home or self-care (01) | DRG 321 ==
LOC: ER 17:01 → PCU 20:58
PROVIDERS: Emergency Medicine; Family Medicine; Internal Medicine; Student in an Organized Health Care Education/Training Program; ADMIT Internal Medicine
PROC: 027034Z Dilation of Coronary Artery, One Artery with Drug-eluting Intraluminal Device, Percutaneous Approach (ICD-10-PCS; principal; 2023-06-06)
PROC: B24BZZZ Ultrasonography of Heart with Aorta (ICD-10-PCS; 2023-06-06)
DX: T82.855A Stenosis of coronary artery stent, initial encounter (principal); I21.A9 Other myocardial infarction type; I50.43 Acute on chronic combined systolic (congestive) and diastolic (congestive) heart failure; I13.0 Hypertensive heart and chronic kidney disease with heart failure and stage 1 through stage 4 chronic kidney disease, or unspecified chronic kidney disease; I25.2 Old myocardial infarction; F17.210 Nicotine dependence, cigarettes, uncomplicated; E11.22 Type 2 diabetes mellitus with diabetic chronic kidney disease; N18.31 Chronic kidney disease, stage 3a; E03.9 Hypothyroidism, unspecified; E78.5 Hyperlipidemia, unspecified; I25.119 Atherosclerotic heart disease of native coronary artery with unspecified angina pectoris; I25.5 Ischemic cardiomyopathy; I34.0 Nonrheumatic mitral (valve) insufficiency; Z79.82 Long term (current) use of aspirin; Z79.4 Long term (current) use of insulin
CPT/HCPCS: 36415; 71046; 76937; 80048; 80053; 82947; 83735; 83880; 84100; 84484; 85025; 85347; 85610; 85730; 93005; 93010; 93306; 93458; 94660; 94762; 96361; 96365; 96366; 99152; 99153; 99285-25; A9270; C1725; C1769; C1874; C1887; C1894; C9600; J1644; J1940; J2060; J2250; J3010; J3246; J7030; J7050; Q9967